=== PATIENT | female | born 1975 | race Caucasian/White ===

== ENCOUNTER 2016-12-07 20:51 | Emergency (ER) | payer BC ==
[2016-12-07 21:31] VITALS: TEMP 98
[2016-12-07 22:07] LABS: Basophils # (A) 0.1 k/uL (0-0.2); Basophils % (A) 1 %; CH 32.7; CHCM 34.5; Eosinophils # (A) 0.2 k/uL (0-0.7); Eosinophils % (A) 2 %; HCT 42.2 % (34.0-46.0); HDW 2.42; HGB 14.2 gm/dL (11.4-16.0); Luc % (Auto) 1; Lymphocytes # (A) 2.8 k/uL (1.0-4.8); Lymphocytes % (A) 24 %; MCH 32.1 pg (25.0-35.0); MCHC 33.7 g/dL (31.0-37.0); MCV 95.3 fL (80.0-100.0); Mean Platelet Volume 7.8; Monocytes # (A) 0.5 k/uL (0-1.0); Monocytes % (A) 5 %; Neutrophils % (A) 68 %; RBC 4.43 m/uL (3.80-5.40); WBC 11.6 k/uL (3.8-10.6)
[2016-12-07 22:16] LABS: ALT 25 U/L (9-52); AST 18 U/L (14-36); Alkaline Phosphatase 53 U/L (38-126); Anion Gap 10 mmol/L; Blood Urea Nitrogen 15 mg/dL (7-17); Calcium 9.2 mg/dL (8.4-10.2); Carbon Dioxide 25 mmol/L (22-30); Chloride 102 mmol/L (98-107); Glucose 113 mg/dL (74-99); Magnesium 1.5 mg/dL (1.6-2.3); Non-African American GFR(MDRD) >60 (>60 ml/min/1.73 sqM); Potassium 3.9 mmol/L (3.5-5.1); Sodium 137 mmol/L (137-145); Total Bilirubin 0.4 mg/dL (0.2-1.3); Total Protein 7.1 g/dL (6.3-8.2)
--- NOTE | 2016-12-07 22:37 | XR ---
EXAMINATION TYPE: XR chest 1V portable DATE OF EXAM: 12/07/2016 10:09 PM COMPARISON: NONE HISTORY: Chest pain and tingling in both arms today TECHNIQUE: Single frontal view of the chest is obtained. FINDINGS: There is no focal air space opacity, pleural effusion, or pneumothorax seen. The cardiac silhouette size is within normal limits. The osseous structures are intact. IMPRESSION: No acute process.
--- NOTE | 2016-12-07 22:52 | ED ---
Chest Pain HPI - General Chief Complaint: Chest Pain Stated Complaint: chest pain Time Seen by Provider: 12/07/16 21:22 Source: patient, RN notes reviewed Mode of arrival: ambulatory Limitations: no limitations - History of Present Illness Initial Comments: This patient is 41-year-old woman who presents to be evaluated for epigastric pressure type pain that developed between 2-3 hours ago while she was at home. The patient states that she also was feeling a little bit short of breath. She states that when the symptoms did not go away she decided to be seen here. The pain did resolve while she was on the way here, and the shortness of breath cleared up as well. The patient believes that she did have some anxiety that was going on and believes that was responsible for the breathing. MD Complaint: chest pain Onset/Timin -: hour(s) Onset: during rest Pain Location: epigastric Pain Radiation: none Severity: moderate Quality: other (Pressure) Consistency: now resolved Improves With: nothing Worsens With: nothing Anginal Symptoms: dyspnea Treatments Prior to Arrival: none - Related Data Previous Rx's Medication Instructions Recorded Famotidine [Pepcid] 20 mg PO DAILY #14 tablet 12/08/16 Allergies Allergy/AdvReac Type Severity Reaction Status Date / Time No Known Allergies Allergy Verified 12/07/16 21:26 Review of Systems ROS Statement: Those systems with pertinent positive or pertinent negative responses have been documented in the HPI. ROS Other: All systems not noted in ROS Statement are negative. Constitutional: Denies: fever, chills ENT: Denies: throat pain Respiratory: Reports: dyspnea. Denies: cough, wheezes Cardiovascular: Reports: as per HPI, chest pain. Denies: palpitations, dyspnea on exertion, orthopnea, edema, syncope Gastrointestinal: Reports: as per HPI, abdominal pain. Denies: nausea, vomiting , melena, hematochezia Genitourinary: Denies: dysuria, hematuria Musculoskeletal: Denies: back pain Skin: Denies: rash Neurological: Denies: headache, weakness, numbness EKG Findings - EKG Results: EKG: interpreted by TAM STARR, sinus rhythm (Rate 94 bpm), normal axis, normal QRS, normal ST/T, no acute changes Past Medical History Past Medical History: Cancer History of Any Multi-Drug Resistant Organisms: None Reported Past Surgical History: Cholecystectomy Past Psychological History: No Psychological Hx Reported Smoking Status: Current every day smoker Past Alcohol Use History: Occasional Past Drug Use History: Marijuana General Exam Limitations: no limitations General appearance: alert, in no apparent distress Head exam: Present: atraumatic, normocephalic Eye exam: Present: normal appearance. Absent: scleral icterus, conjunctival injection Neck exam: Present: normal inspection Respiratory exam: Present: normal lung sounds bilaterally. Absent: respiratory distress, wheezes, rales, rhonchi, stridor, chest wall tenderness Cardiovascular Exam: Present: regular rate, normal rhythm, normal heart sounds. Absent: systolic murmur, diastolic murmur, rubs, gallop GI/Abdominal exam: Present: soft. Absent: distended, tenderness, guarding, rebound, mass Extremities exam: Present: normal inspection, normal capillary refill. Absent: pedal edema, calf tenderness Back exam: Absent: CVA tenderness (R), CVA tenderness (L) Neurological exam: Present: alert Skin exam: Present: warm, dry, intact, normal color. Absent: rash Course Vital Signs 12/07/16 12/07/16 12/07/16 20:57 21:27 22:29 Temperature 99.1 F 98.0 F 98.0 F Pulse Rate 110 H 90 88 Pulse Rate [ 90 Beet Flumer ] Respiratory 20 18 16 Rate Blood Pressure 129/80 150/69 107/54 O2 Sat by Pulse 100 98 98 Oximetry 12/07/16 23:47 Temperature Pulse Rate 80 Pulse Rate [ Beet Flumer ] Respiratory 12 Rate Blood Pressure 103/48 O2 Sat by Pulse 97 Oximetry Disposition Clinical Impression: Chest pain Disposition: HOME SELF-CARE Condition: Good Instructions: Chest Pain (ED) Prescriptions: Famotidine [Pepcid] 20 mg PO DAILY #14 tablet Referrals: None,Stated [Primary Care Provider] - 1-2 days Tj Jose MD [STAFF PHYSICIAN] - 1-2 days
[2016-12-07 23:48] VITALS: BP 103/48; PULSE 80; RESP 12
== END 2016-12-08 00:11 | disposition home or self-care (01) ==
LOC: EC 20:51
DX: R07.9 Chest pain, unspecified (principal); F17.200 Nicotine dependence, unspecified, uncomplicated; Z79.899 Other long term (current) drug therapy
CPT/HCPCS: 36415; 71010; 80053; 83735; 84484; 85025; 93005; 99285

== ENCOUNTER 2021-06-15 10:44 | Emergency (ER) | payer BC, OTHER ==
[2021-06-15 10:48] VITALS: TEMP 98.2
[2021-06-15 11:01] VITALS: RESP 20
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
--- NOTE | 2021-06-15 11:39 | XR ---
EXAMINATION TYPE: XR thoracic spine complete DATE OF EXAM: 06/15/2021 COMPARISON: None HISTORY: Fall, pain TECHNIQUE: 3 view thoracic spine. FINDINGS: There are 12 thoracic type vertebral bodies. The pedicles are intact. Disc heights are pres erved. Body heights are preserved. Alignment is normal. IMPRESSION: 1. Normal three-view thoracic spine
--- NOTE | 2021-06-15 12:08 | CT ---
EXAMINATION TYPE: CT brain bear wo con DATE OF EXAM: 06/15/2021 COMPARISON: None HISTORY: Fall CT DLP: 1160.5 mGycm, Automated exposure control for dose reduction was used. CONTRAST: Patient injected with mL of . CT of the brain is performed utilizing 3 mm thick sections through the posterior fossa and 3 mm thick sections through the remaining calvarium. Study is performed within 24 hours of arrival to the hospital. No abnormal hyperdensity is present to suggest an acute intracranial hemorrhage. No mass lesion is evident. No acute infarcts are evident. Ventricles and sulci are appropriate for the patient age. Some minimal mucosal thickening is within a posterior right ethmoid air cell. Remaining paranasal sin uses and mastoid air cells are clear. IMPRESSIONS: 1. No acute intracranial process. CT cervical spine. COMPARISON: None CT of the cervical spine is performed in the axial plane at 2 mm thick sections. Reconstructed image s in the coronal, and sagittal plane are reviewed on the computer. No acute fractures are evident. Vertebral body alignment is normal. Disc heights are preserved. Vertebral body heights are preserved. No spinal canal stenosis is evident. No neural foraminal stenosis is evident. IMPRESSIONS: 1. Normal CT cervical spine.
[2021-06-15 12:13] VITALS: BP 126/53; PULSE 75
[2021-06-15] MEDS ORDERED: HYDROcodone/APAP 5-325MG 1 EACH TAB PO STA (12:36)
== END 2021-06-15 12:51 | disposition home or self-care (01) ==
LOC: EC 10:44
DX: R20.2 Paresthesia of skin (principal); M54.9 Dorsalgia, unspecified; W18.09XA Striking against other object with subsequent fall, initial encounter; Y92.89 Other specified places as the place of occurrence of the external cause; F17.200 Nicotine dependence, unspecified, uncomplicated
CPT/HCPCS: 70450; 72072; 72125; 99284

== ENCOUNTER 2023-02-22 06:10 | Emergency (ER) | payer OTHER ==
[2023-02-22] MEDS ORDERED: KETOROLAC 15 MG/ML 1 ML VIAL IVP STA (06:36)
[2023-02-22] MEDS ORDERED: ORPHENADRINE 30 MG/ML 2 ML VIAL IVP STA (06:36)
[2023-02-22] MEDS ORDERED: methylPREDNISolone SOD SUCCI 125 MG/2 ML VIAL IV STA (06:36)
[2023-02-22] MEDS ORDERED: ACET/COD 300 MG/30 MG STARTER PACK 6 TAB BTL PO STA (06:43)
--- NOTE | 2023-02-22 06:50 | ED ---
General Adult HPI - General Stated complaint: Back pain Time Seen by Provider: 02/22/23 06:13 Source: patient, EMS, RN notes reviewed Mode of arrival: EMS Limitations: no limitations - History of Present Illness Initial comments: 47-year-old female presents emergency department tingling or sciatica. Patient states she seen in one month ago states she did to better but never followed up with she was advised. Patient states that the pain. Her left leg. She denies any bowel, bladder incontinence or retention or saddle anesthesias. Patient states that she's had back pain for long periods time. Patient denies any abdominal pain no dysuria no hematuria denies any trauma. - Related Data Previous Rx's Medication Instructions Recorded Ibuprofen [Motrin] 600 mg PO Q8HR PRN #20 tab 01/16/23 Orphenadrine [Norflex] 100 mg PO Q12H #14 tab 02/22/23 predniSONE 50 mg PO DAILY #5 tab 02/22/23 Allergies Allergy/AdvReac Type Severity Reaction Status Date / Time No Known Allergies Allergy Verified 06/15/21 12:10 Review of Systems ROS Statement: Those systems with pertinent positive or pertinent negative responses have been documented in the HPI. ROS Other: All systems not noted in ROS Statement are negative. Past Medical History Past Medical History: Cancer History of Any Multi-Drug Resistant Organisms: None Reported Past Surgical History: Cholecystectomy Past Psychological History: No Psychological Hx Reported Smoking Status: Current every day smoker Past Alcohol Use History: Occasional Past Drug Use History: Marijuana General Exam General appearance: alert, in no apparent distress Head exam: Present: atraumatic, normocephalic, normal inspection Eye exam: Present: normal appearance, PERRL, EOMI. Absent: scleral icterus, conjunctival injection, periorbital swelling ENT exam: Present: normal exam, mucous membranes moist Neck exam: Present: normal inspection, full ROM. Absent: tenderness, meningismus, lymphadenopathy Respiratory exam: Present: normal lung sounds bilaterally. Absent: respiratory distress, wheezes, rales, rhonchi, stridor Cardiovascular Exam: Present: regular rate, normal rhythm, normal heart sounds. Absent: systolic murmur, diastolic murmur, rubs, gallop, clicks GI/Abdominal exam: Present: soft, normal bowel sounds. Absent: distended, tenderness, guarding, rebound, rigid Extremities exam: Present: other (Lower extremity pulses equal bilaterally, full range of motion strength equal there is some discomfort with left straight leg raise.) Back exam: Present: tenderness, muscle spasm, paraspinal tenderness. Absent: full ROM, vertebral tenderness Neurological exam: Present: alert, reflexes normal. Absent: motor sensory deficit Medical Decision Making - Medical Decision Making Was pt. sent in by a medical professional or institution (BRIAN Baker, ORGANIC PREPARATION TECHNICIAN, urgent care, hospital, or prison...) When possible be specific @ -No Did you speak to anyone other than the patient for history (EMS, parent, family, police, friend...)? What history was obtained from this source @ -No Did you review nursing and triage notes (agree or disagree)? Why? @ -I reviewed and agree with nursing and triage notes Were old charts reviewed (outside hosp., previous admission, EMS record, old EKG, old radiological studies, urgent care reports/EKG's, prison records)? Report findings @ -Reviewed prior lumbar x-ray one month ago showing severe degenerative changes L5-S1 Differential Diagnosis (chest pain, altered mental status, abdominal pain women, abdominal pain men, vaginal bleeding, weakness, fever, dyspnea, syncope, headache, dizziness, GI bleed, back pain, seizure, CVA, palpatations, mental health, musculoskeletal)? @ -Differential Back Pain: Strain, zoster, cauda equina syndrome, epidural abscess, vertebral osteomyelitis, discitis, fracture, subluxation, disc herniation, DJD, spinal stenosis, dissection, AAA, pancreatitis, peptic ulcer disease, pyelonephritis, kidney stone, this is not meant to be an all-inclusive list. EKG interpreted by me (3pts min.). @ -As above X-rays interpreted by me (1pt min.). @ -None done CT interpreted by me (1pt min.). @ -None done U/S interpreted by me (1pt. min.). @ -None done What testing was considered but not performed or refused? (CT, X-rays, U/S, labs)? Why? @ -Considered MRIs of this needs to be completed her outpatient patient has no red flag symptoms. What meds were considered but not given or refused? Why? @ -None Did you discuss the management of the patient with other professionals (professionals i.e. Dr., PA, ORGANIC PREPARATION TECHNICIAN, lab, RT, psych nurse, director social service, weight analyst, teacher, surveillance dual rate officer, case assistant)? Give summary @ -No Was smoking cessation discussed for >3mins.? @ -No Was critical care preformed (if so, how long)? @ -No Were there social determinants of health that impacted care today? How? (Homelessness, low income, unemployed, alcoholism, drug addiction, transportation, low edu. Level, literacy, decrease access to med. care, [facility], rehab)? @ -No Was there de-escalation of care discussed even if they declined (Discuss DNR or withdrawal of care, Hospice)? DNR status @ -No What co-morbidities impacted this encounter? (DM, HTN, Smoking, COPD, CAD, Cancer, CVA, ARF, Chemo, Hep., AIDS, mental health diagnosis, sleep apnea, morbid obesity)? @ -Chronic back pain Was patient admitted / discharged? Hospital course, mention meds given and route, prescriptions, significant lab abnormalities, going to OR and other pertinent info. @ -Discharged patient's x-ray confirmed your records were reviewed patient has severe degenerative changes L5-S1 consistent with recurrent sciatica pain. She has no red flag symptoms. She is again advised to follow-up as instructed last time. She will be discharged with prednisone, muscle relaxer Undiagnosed new problem with uncertain prognosis? @ -No Drug Therapy requiring intensive monitoring for toxicity (Heparin, Nitro, Insulin, Cardizem)? @ -No Were any procedures done? @ -No Diagnosis/symptom? @ -Lumbar back pain, sciatica Acute, or Chronic, or Acute on Chronic? @ -Acute on chronic] Uncomplicated (without systemic symptoms) or Complicated (systemic symptoms)? @ -Uncomplicated Side effects of treatment? @ -No Exacerbation, Progression, or Severe Exacerbation? @ -No Poses a threat to life or bodily function? How? (Chest pain, [place], CA, pneumonia, PE, COPD, DKA, ARF, appy, cholecystitis, CVA, Diverticulitis, Homicidal, Suicidal, threat to staff... and all critical care pts) @ -No Disposition Clinical Impression: Lumbar radiculopathy, acute Disposition: HOME SELF-CARE Condition: Stable Instructions (If sedation given, give patient instructions): Lumbar Radiculopathy (ED) Additional Instructions: Please return to the Emergency Department if symptoms worsen or any other concerns. Prescriptions: Orphenadrine [Norflex] 100 mg PO Q12H #14 tab predniSONE 50 mg PO DAILY #5 tab Is patient prescribed a controlled substance at d/c from ED?: No Referrals: None,Stated [Primary Care Provider] - 1-2 days Hanna Ren DO [Doctor of Osteopathic Medicine] - 1-2 days Time of Disposition: 06:42
[2023-02-22 07:47] VITALS: BP 133/62; PULSE 63; RESP 16; TEMP 98
== END 2023-02-22 07:47 | disposition home or self-care (01) ==
LOC: EC 06:10
DX: M54.16 Radiculopathy, lumbar region (principal); F17.200 Nicotine dependence, unspecified, uncomplicated; F12.90 Cannabis use, unspecified, uncomplicated; Z90.49 Acquired absence of other specified parts of digestive tract
CPT/HCPCS: 99283; 96374; 96375 ×2; J2360; J2930; J1885

== ENCOUNTER → 2023-03-17 | Outpatient (CLI) | payer OTHER ==
--- NOTE | 2023-03-19 10:27 | MR ---
EXAMINATION TYPE: MR lumbar spine wo con DATE OF EXAM: 03/17/2023 8:04 PM COMPARISON: 03/03/2023. CLINICAL INDICATION:Female, 47 years old with history of M47.26; Low back pain that radiates down bot h legs, leg spasms TECHNIQUE: Multi planar, multi sequence imaging was performed utilizing: T1-weighted, T2-weighted, a nd turbo inversion recovery imaging of the lumbar spine. IV Contrast: None. FINDINGS: Alignment: The lumbar vertebral bodies have preserved heights and alignment. Cord: The conus medullaris and the distal spinal cord appear unremarkable with regards to their signa l intensity and morphology. Bones/Discs: Modic endplate changes most pronounced at L4-L5 anterior adjoining endplates No abnormal bony edema on inversion recovery sequences. Multilevel disc degenerative is noted and most pronounce d at the L4-L5 with disc desiccation and endplate height loss. Intervertebral disc signal is maintain ed. T12-L1: No evidence of significant spinal canal stenosis or neural foraminal stenosis. L1-L2: No evidence of significant spinal canal stenosis or neural foraminal stenosis. L2-L3: No evidence of significant spinal canal stenosis or neural foraminal stenosis. L3-L4: No evidence of significant spinal canal stenosis or neural foraminal stenosis. L4-L5: No evidence of significant spinal canal stenosis or neural foraminal stenosis. L5-S1: The disc is rounded posterior morphology without significant spinal canal stenosis. Facet join t arthropathy with moderate neural foraminal stenosis. Other findings: None. IMPRESSION: 1. No definitive evidence of disc herniation or significant spinal canal stenosis. 2. Multilevel disc degeneration with associated osteoarthritic changes worse at L4-L5 with near comp lete disc space loss and moderate neural foraminal stenosis.
== END | disposition home or self-care (01) ==
LOC: RADMRIMAIN 19:12
PROVIDERS: ATTEND Nurse Practitioner Family
DX: M47.26 Other spondylosis with radiculopathy, lumbar region (principal); M51.16 Intervertebral disc disorders with radiculopathy, lumbar region; M99.73 Connective tissue and disc stenosis of intervertebral foramina of lumbar region
CPT/HCPCS: 72148

== ENCOUNTER → 2023-06-09 | Outpatient (CLI) | payer OTHER | END | disposition home or self-care (01) | LOC: LABPAT 10:16 | PROVIDERS: ATTEND Orthopaedic Surgery | DX: Z01.812 Encounter for preprocedural laboratory examination (principal); M47.817 Spondylosis without myelopathy or radiculopathy, lumbosacral region; M48.061 Spinal stenosis, lumbar region without neurogenic claudication; Z22.322 Carrier or suspected carrier of Methicillin resistant Staphylococcus aureus | CPT/HCPCS: 87070 ==

== ENCOUNTER 2023-06-15 07:52 | Day surgery (SDC) | payer OTHER ==
--- NOTE | 2023-06-15 07:00 | P.HPOR ---
History of Present Illness H&P Date: 06/09/23 .D:Date: 06/09/23 : 04:34pm .T:Title: *[facility]... COPY... 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 Month and Year of last PT date? No, unable to complete due to sprained right ankle. Physician directed home exercise completed? Yes Medications Yes; List: Motrin & Flexeril Alternative interventions Chiropractic:yes Massage therapy: yes R.I.C.E:yes Brace:No Injections No RFA:No SUBJECTIVE: Ms. Ortiz returns to the office today for a pre-operative appointment for her L5-S1 MIS TLIF. The patient notes a continued burning, pinching, and ache- like pain throughout the low back. She reports no changes to her symptoms since her last visit. The patient also experiences continued pain throughout the bilateral lower extremities, worse throughout the right leg at this time. The patient notes that her bilateral leg pain is associated with numbness and tingling. The patient states that her pain is exacerbated with all activity, but mostly with prolonged walking or standing. The patient continues to experience severe sleep disturbances due to her ongoing symptoms. The patient has trialed conservative treatment in the form of at home heat/ice therapies, at home exercises, resident care aide, massage therapy, and medication management all with no significant or sustained relief. The patient is currently taking Motrin and Flexeril with minimal relief. The patient notes that her symptoms have been worsening and are starting to significantly affect her overall quality of life. Otherwise the patient denies any f/c/sob/cp, no bladder or bowel retention/incontinence, no perineal numbness/tingling, and ambulates independently. HPI: Ms. Ortiz returns to the office on 04/28/23 for a re-check on her low back pain. The patient notes a continued burning, pinching, and ache-like pain throughout the low back that has remained constant since she was last seen in office on 04/09/2023. The patient also experiences continued pain throughout the bilateral lower extremities, worse throughout the right leg at this time. The patient notes that her bilateral leg pain is associated with numbness and tingling. The patient states that her pain is exacerbated with all activity, but mostly with prolonged walking or standing. The patient continues to experience severe sleep disturbances due to her ongoing symptoms. The patient has trialed conservative treatment in the form of at home heat/ice therapies, at home exercises, resident care aide, massage therapy, and medication management all with no significant or sustained relief. The patient is currently taking Ibuprofen and Flexeril with minimal relief. The patient notes that her symptoms have been worsening and are starting to significantly affect her overall quality of life. Otherwise the patient denies any f/c/sob/cp, no bladder or bowel retention/incontinence, no perineal numbness/tingling, and ambulates independently. Ms. Ortiz returns to the office on 04/09/2023 for a recheck of her low back pain and MRI results. Since the last office visit, patient has not been able to complete physical therapy due to her injuring her right ankle. She states she did have 75% relief of her symptoms while taking the medrol dose elvi. She continues to have complaint of a dull, burning lumbar pain that it radiates into the bilateral lower extremities, associated with numbness and tingling. She still states the left leg is worse. Patient denies trialing any other modalities at this time. For their symptoms, the patient has been taking Aleve. MRI results have been reviewed and discussed. Otherwise the patient denies any f/c/sob/cp, no bladder or bowel retention/incontinence, no perineal numbness/tingling, and ambulates independently. Ms. Ortiz was last seen on 03/03/23 regarding an evaluation of their low back pain. Patient reports a dull, burning lumbar pain with an onset of 14 years after falling from a tree. Patient states her symptoms have increased over the past two months. In addition to their lumbar pain, they do report that it radiates into the bilateral lower extremities, associated with numbness and tingling. She states the left leg is worse. Patient states that her legs become very heavy after a period of time ambulating. Overall the patient has seen a progressive increase in symptoms since their onset. Ms. Ortiz symptoms are exacerbated with prolonged ambulation and standing, due to this they notes that it is increasingly difficult for her to complete many of their daily tasks. Patient is having moderate sleep disturbances as well due to their ongoing pain and associated symptoms. Regarding treatments, the patient has previously trialed the above listed modalities. Patient denies trialing any other modalities at this time. For their symptoms, the patient has been taking Aleve. Otherwise the patient denies any f/c/sob/cp, no bladder or bowel retention/incontinence, no perineal numbness/tingling, and ambulates independently. The patients' past social, medical, family, surgical history, as well as review of systems, have been reviewed. Please refer to the Neurosurgery History and Physical form that has been scanned in to our electronic medical record system. 14 points review of systems completed and as stated in HPI, all other systems reviewed are negative. Social History: Reviewed, see appropriate section of the chart for details. P3 Family History: Reviewed, see appropriate section of the chart for details. P2 Past Medical History: Reviewed, see appropriate section of the chart for details. [id number] Medications: Rx: cyclobenzaprine 5 mg tablet Ref: 0 PHYSICAL EXAMINATION: General:Awake, alert, appropriate for age, in no acute distress. HEENT:No unusual neck masses around region of lateral neck triangle, thyroid, supraclavicular groove Heart:Regular rate and rhythm, normal S1, S2 and no murmur/gallop. Lungs:Clear to auscultation bilaterally with no use of accessory muscles. Extremities: Skin warm and dry without acute lesions, coloration, temperature, skin intact, no tenderness or erythema Integument: Hairy patches:ABSENT Dorsal skin dimples:ABSENT Cafe au lait spots:ABSENT Palpation: Please see Pain drawing on Intake sheet for further detail. Midline spinal tenderness:No E6 Cervical Tenderness: No E6 Paralumbar tenderness:Yes E6 Parathoracic tenderness:No E6 Buttocks tenderness:No E6 Sacroiliac Tenderness:No POSTURAL and MUSCULO-SKELETAL EVALUATION: Coronal Balance:NEUTRAL Recumbent testing:Patient isable to lay flat on back Sagittal Balance:NEUTRAL Shoulder Profile:LEVEL Pelvic Girdle:LEVEL Neck ROM:UNRESTRICTED Lumbar ROM:RESTRICTED Shoulder ROM:Symmetrical Hip ROM:Symmetrical Knee ROM:Symmetrical Hands:Normal appearance, symmetrical Feet:Normal appearance, Symmetrical VASCULAR STATUS : LEFT RIGHT Wrist Pulses INTACT INTACT Pedal Pulses (Dors. pedis & post.tibialis) INTACT INTACT Color NORMAL NORMAL Edema Absent Absent NEUROLOGIC EXAMINATION: Mental Status:Awake and alert, fully oriented, with normal attention, concentration and memory, and fluent, appropriate speech. Cranial Nerves: I: Olfactory not tested. II: Visual acuity normal, no visual field deficit noted with confrontation. III,IV: Normal pupillary reflexes & intact extraocular movements without nystagmus. V,: Intact symmetrical facial sensation. VII: Intact symmetrical facial motor movement VIII: Hearing intact. IX,X: Intact gag, swallow, & normal voice. XI: Sternocleidomastoid, trapezius function intact. XII: Tongue midline with normal movements. L'hermitte's Sign:Negative / absent Spurling'Sign:Absent bilaterally. Cubital percussion test:Absent bilaterally. Argueta-Tinel sign - Carpal region:Absent bilaterally. Straight Leg Raising:Positive, right lower extremity. Crossed straight leg raise:negative O8 MOTOR EXAM (0-5/5, N/T Muscle appearance: Symmetrical, without signs of atrophy or dystrophy UPPER EXTREMITY RIGHT LEFT Shoulder Abduction 5/5 5/5 Biceps 5/5 5/5 Triceps 5/5 5/5 Wrist Extension 5/5 5/5 Hand Intrinsic 5/5 5/5 Buttoner 5/5 5/5 Hand and finger dexterity intact bilaterally? yes Disdiadochokinesis examination negative bilaterally? yes LOWER EXTREMITY RIGHT LEFT Hip Flexion 4+/5 5/5 Knee Extension 4+/5 5/5 Knee Flexion 4+/5 5/5 Dorsiflexion 4+/5 5/5 Plantarflexion 4+/5 5/5 EHL 4+/5 5/5 FHL 4+/5 5/5 Toe heel walk / heel-toe walk intact while maintaining satisfactory balance? yes Squatting/straightening w/o assistance to a min of 60 degree knee flexion? No Single leg stance:intact Trendelenburg sign negative bilaterally REFLEXES(0-4/2, NT)Upper ExtremityLower Extremity Right 2 2 Left 2 2 Pathological Reflexes RIGHT LEFT Argueta's Absent Absent Clonus Absent Absent Babinski Absent Absent Sensory system (0-4, N/T) Test type RU ORA RL LL Joint-Position 2 2 2 2 Vibration 2 2 2 2 Pain & LT sense 2 2 2 2 Dermatomal Deficit: None None L5-S1 None Gait and Functional Evaluation: Ambulatory aids:Independent Romberg's test:Intact bilaterally Steady Gait RADIOGRAPHIC STUDIES: XRay Lumbar Multiview (AP, Lateral, Flexion, Extension) with AP pelvis; 5 views taken at [facility] on 03/03/23: - Reviewed with the patient in office today. Mild multilevel degenerative changes with preserved alignment.Multilevel diminished disc height, more prominent L5-S1.Vertebral body heights are preserved.No acute osseous abnormalities. MRI [facility] from03/17/23 of Lumbar Spine: - Reviewed with the patient today. -L5-S1 spondylosis with stenosis b/l foraminal and mild central. There is severe disc collapse, facet arthrosis and insufficiency as well as segmental kyphotic collapse due to the spondylosis. Moderate spondylotic changes L4-5 noted as well. Some minor disc bulging here. No fracture. NO lesions. IMPRESSION: It was my pleasure to have seen and examined Aicha. I reviewed the patient's clinical syndrome, physical findings, and imaging studies during the appointment today. It is my impression that the patient has a diagnosis of. 1. L5-S1 spondylosis with stenosis 2. Bilateral lower extremity radiculopathy 3. Low back pain I outlined the natural course history without intervention and various interventional options. PLAN: Based on my findings I suggest the following course of action: -I discussed treatment options with the patient, including operative and non- operative options, and they have elected to proceed with the following surgical procedure: L5-S1 minimally invasive transforaminal lumbar interbody fusion, right The indications, risks, benefits, and alternatives to surgery were discussed with the patient at length. Specifically (but not limited to) the risks of infection, stiffness, recurrence of symptoms, need for revision surgery, local numbness, neurovascular injury, and blood clots were discussed. The patient's questions were answered. - I have sent a prescription to [facility] today for Motrin 800 mg. - Ambulate daily - Take medications as directed - Ice and rest for pain and swelling control. Spine Surgery Risk Review Ms. Ortiz is presenting for evaluation of low back pain. It was my pleasure to have seen and examined Ms. Ortiz. In our visit today we have had a chance to go over subjective complaints, physical examination findings and treatments including the natural course history without intervention and various interventional options. The patients imaging demonstrates: XRay Lumbar Multiview (AP, Lateral, Flexion, Extension) with AP pelvis; 5 views taken at [facility] on 03/03/23: - Reviewed with the patient in office today. Mild multilevel degenerative changes with preserved alignment.Multilevel diminished disc height, more prominent L5-S1.Vertebral body heights are preserved.No acute osseous abnormalities. MRI scancompleted at [facility] from03/17/23 of Lumbar Spine: - Reviewed with the patient today. -L5-S1 spondylosis with stenosis b/l foraminal and mild central. There is severe disc collapse, facet arthrosis and insufficiency as well as segmental kyphotic collapse due to the spondylosis. Moderate spondylotic changes L4-5 noted as well. Some minor disc bulging here. No fracture. NO lesions. On physical exam, Ms. Ortiz demonstrates: The patient reports experiencing a burning, pinching, and ache-like pain throughout the low back that has remained constant since she was last seen in office on 04/09/2023. The patient also experiences continued pain throughout the bilateral lower extremities, worse throughout the right leg at this time. The patient notes that her bilateral leg pain is associated with numbness and tingling. The patient states that her pain is exacerbated with all activity, but mostly with prolonged walking or standing. The patient continues to experience severe sleep disturbances due to her ongoing symptoms. The patient notes that her symptoms have been worsening and are starting to significantly affect her overall quality of life. I have explained to the patient that as their condition progresses it will cause further neurological deficits and eventual paralysis. Based on the patients imaging, physical exam, and the rapid progression and disabling nature of their symptoms, at this time I recommend surgery in the form of a: L5-S1 MIS TLIF, right-sided approach. I discussed the risk and benefits of this procedure at [facility] with Ms. Ortiz. The patient agreed to considered pursuing the procedure above mentioned. Prior to surgery, she should follow up with her PCP (Cardio, ID, IM etc) for clearance. Questions were invited and answered, and the patient wishes to proceed as outlined below. Currently, I am recommendin. L5-S1 MIS TLIF, right-sided approach 2.Follow up with PCP for surgical clearance 3.Review of surgical risks and benefits as well as an educational packet on the proposed surgical procedure. Risks: All surgical procedures come with inherent risks, including those related to positioning, anesthesia, intraoperative findings, and postoperative complications. It is important to understand that surgery does not come with any guarantee of a successful outcome as complications and adverse events are always possible. The patient was given a handout in office today discussing the surgical procedure and risks associated with the intervention, both of which were discussed with the patient. These risks include but are not limited to the following: * Experiencing same, different or even worse symptoms in back, neck, arms, or legs compared to before surgery. Requiring further surgery or other forms of treatment presently or at some time in the future at same or other levels of the intended spine surgery. On an extreme but fortunately relatively rare basis severe complication such as blindness, stroke, heart attack, temporary and/or permanent nerve injury, paralysis, coma, or may occur, sometimes without known explanation. Surgical complications may include but are not limited to risk of infection, fluid accumulation in the surgical dissection site, including a seroma or hematoma, that requires additional surgery, wound drainage, bleeding, new numbness or weakness, vision changes/loss, spinal fluid leakage, non-healing and/or infected incision, headaches, difficulty or inability to swallow, hoarseness, hemopneumothorax, pneumothorax, impotence, retrograde ejaculation, vaginal dryness; injury to nerves, spinal cord, blood vessels, lymphatics or other vital organs (i.e., bowel injury, injury to the great vessels); heterotopic bone formation; complications related to the hardware such as screws, rods, cages including misplaced hardware, device failure, instrumentation at the wrong spine level, hardware fracture/breakage, or hardware loosening; vertebral failure of the spinal column above or below the newly placed hardware; retained surgical instrumentations or devices and the need for further surgery. * Medical risks of the planned spine surgery include but are not limited to generalized Infections to the whole body or local areas outside of the surgical site (sepsis), heart attack, bleeding, anaphylaxis, meningitis, seizure, epilepsy, hearing loss, burn junior, laceration of the head or other areas of the body, bruising, hypersensitivity of the skin, bladder over distension; allergic reaction; shoulder injury related to positioning; fat, blood and air clots to other areas of the body like heart, lungs, brain; failure of internal organs such as lungs, kidneys, liver and excessive bleeding. If blood transfusions are necessary, note that transfusions may cause intolerance reactions such as anaphylaxis or other complex reactions. Despite best efforts, the results of spine surgery might not heal in terms of bone, soft tissues such as skin, fascia, ligaments, and joints. Additionally, in order to achieve best possible results, spine surgery may be carried out beyond the initially planned levels and involve decompression, fusion including insertion of hardware at levels other than the original intended area of surgical interest change some portions of the procedure in order to ensure the best possible outcomes. With spine surgery and spinal fusion, there are different off label uses of i nstrumentation (devices, implants and hardware) as well as biological substances (bone morphogenic proteins, demineralized bone matrix) as well as using extra bone from allograft sources (i.e. cadaver bone) or autograft (iliac crest bone, ribs, or the spine itself). The patient has been given information about these practices and their inherent risks and benefits. [facility] is an educational center that serves as a training facility for neurosurgical and orthopedic HONING MACHINE OPERATOR TOOL and Nursing students. Physician assistants are medically trained surgical providers who function in the outpatient, inpatient, and operating room setting under the direct supervision of the attending surgeon. [facility] has multiple operating rooms with single and overlapping rooms running daily. They currently function under the required guidelines as produced by the [facility] Finance Committee with regards to the overlapping rooms and will continue to comply with changes to this policy as they occur. The requirements include and are complied with as follows: (1) the critical portions of the overlapping rooms will not occur at the same time, (2) the attending physician will be physically present during the critical portions of the procedure and immediately available during the entire case, and (3) a back-up attending is designated should the primary attending not be immediately available. The patient has had a chance to review all the listed information, has been given print outs detailing this information, and has had all his/her questions answered to their satisfaction. It was my pleasure to have seen and examined Ms. Whitebread. In our visit today we have had a chance to go over my understanding of our patient's current condition, the natural course history without intervention and various interventional options. Questions were invited and answered, and the patient wishes to proceed as outlined above. I have seen and examined the patient for 25 minutes and we have spent more than 50% of the time in repeat and detailed counseling about the patient's condition, its natural course history with out and as much as can be predicted with surgery and re-review of various surgical treatment options. In conclusion, Ms. Ortiz requested we proceed with the above suggested surgery and are willing to accept risks and limitations of the suggested surgery as nature of the disease process and our best attempts at treatment for the condition. Thank you again for allowing us to be part of your patient's care. Please don't hesitate to contact me if you have any further questions. Follow- up: DEL Post procedure 1month 6wks 3 months 6 months 1 year Patient Education: (Informational booklet, instructions, etc) given at today's appointment: DEL Yes .ED:Patient Education: Y Medications Reviewed: YES In our visit today Ms. Ortiz and I have had a chance to go over my understanding of the patient's current condition, the natural course history without intervention and various interventional options. Questions were invited and answered, and the patient wishes to proceed as outlined above. I will be sure to keep you updated afterMs. Ortiz returns here for further follow-up. Thank you again for your referral. Please do not hesitate to contact me if you have any further questions. Signed and authenticated by: ANITA [facility] [address] [place] [id number] This message is confidential, intended only for the named recipient(s) and may contain information that is privileged or exempt from disclosure under applicable law. If you are not the intended recipient(s), you are notified that the dissemination, distribution or copying of this information is strictly prohibited. If you received this message in error, please notify the sender then delete this message. Patient verbalizes understanding of the information discussed. The above note was initiated by Mihai Durand, physician recording clinical nursing assistant for Dr. Per Gtz. This note has been reviewed by Dr. Gtz, who has made his personal changes and impressions for this document. CC: DEL REFDR... Past Medical History Past Medical History: Cancer, Musculoskeletal Disorder, Osteoarthritis (OA) Additional Past Medical History / Comment(s): cervical cancer-had surg. History of Any Multi-Drug Resistant Organisms: None Reported Past Surgical History: Cholecystectomy Additional Past Surgical History / Comment(s): conization of cervix Past Anesthesia/Blood Transfusion Reactions: No Reported Reaction Smoking Status: Current every day smoker, Vaper - Past Family History Mother Family Medical History: No Reported History Medications and Allergies Home Medications Medication Instructions Recorded Confirmed Type Cyclobenzaprine [Flexeril] 5 mg PO DIRECTED PRN 06/11/23 06/11/23 History Ibuprofen [Motrin] 800 mg PO Q6H PRN 06/11/23 06/11/23 History Allergies Allergy/AdvReac Type Severity Reaction Status Date / Time No Known Allergies Allergy Verified 06/11/23 12:25 Physical Examination Osteopathic Statement: *. No significant issues noted on an osteopathic structural exam other than those noted in the History and Physical/Consult.
[~2023-06-15 07:52] MED LIST: ACETAMINOPHEN TAB 500 MG TAB PO PRN; DEXAMETHASONE SOD PHOSPHATE 4 MG/ML 1 ML VIAL IV ONE; GABAPENTIN 300 MG CAP PO PRN; ONDANSETRON 4 MG/2 ML VIAL IVP ONE; ONDANSETRON 4 MG/2 ML VIAL IVP PRN; TRANEXAMIC 1,000 MG/100ML-NACL 1,000 MG in SALINE 1 100ML.BAG IVPB PRN
[2023-06-15] MEDS: LACTATED RINGERS 1,000 ML IV SCH (08:58)
--- NOTE | 2023-06-15 11:19 | P.PN ---
Progress Note - Text Progress Note Date: 06/15/23 History and Physical UPDATE I have seen and examined the patient and reviewed the history and physical. There appear to be no significant changes in the patient's current medical status as outlined in the current History and Physical.
[2023-06-15] MEDS ORDERED: fentaNYL (PF) 50 MCG/ML 2 ML AMP ONE (11:38)
[2023-06-15] MEDS ORDERED: PHENYLEPHRINE-0.9% NACL SYG 1,000 MCG/10 ML SYRINGE ONE (11:38)
[2023-06-15] MEDS ORDERED: SUCCINYLCHOLINE CHLORIDE 200 MG/10 ML VIAL IV ONE (11:38)
[2023-06-15] MEDS ORDERED: PROPOFOL 10 MG/ML 20 ML VIAL IV ONE (11:38)
[2023-06-15] MEDS ORDERED: LIDOCAINE 2% INJ 20 MG/ML (2 ML VIAL) ONE (11:38)
[2023-06-15] MEDS ORDERED: GLYCOPYRROLATE 0.2 MG/ML 2 ML VIAL ONE (11:38)
[2023-06-15] MEDS ORDERED: ONDANSETRON 4 MG/2 ML VIAL ONE (11:38)
[2023-06-15] MEDS ORDERED: TRANEXAMIC 1,000 MG/100ML-NACL PREMIX BAG ONE (11:38)
[2023-06-15] MEDS ORDERED: MIDAZOLAM 2 MG/2 ML VIAL ONE (11:38)
[2023-06-15] MEDS ORDERED: ePHEDrine 50 MG/ML 1 ML VIAL ONE (11:38)
[2023-06-15] MEDS ORDERED: LACTATED RINGERS 1,000 ML IV ONE ×2 (11:43→14:05)
[2023-06-15] MEDS ORDERED: GELATIN SPONGE,ABSORBABLE 1 GM POWDER TOPICAL ONE (12:29)
[2023-06-15] MEDS ORDERED: THROMBIN (BOVINE) 5,000 UNIT VIAL TOPICAL ONE (12:29)
[2023-06-15] MEDS ORDERED: HYDROmorphone 0.5 MG/0.5 ML SYRINGE IVP PRN (13:45)
[2023-06-15] MEDS ORDERED: MAGNESIUM HYDROXIDE 2,400 MG/30 ML CUP PO PRN (13:45)
[2023-06-15] MEDS ORDERED: HYDROcodone/APAP 5-325MG 1 EACH TAB PO PRN (13:45)
[2023-06-15] MEDS ORDERED: SENNOSIDES-DOCUSATE SODIUM 1 EACH TAB PO PRN (13:45)
--- NOTE | 2023-06-15 14:08 | P.OP ---
Date of Procedure: 06/15/23 Preoperative Diagnosis: 1. L5-S1 SPONDYLOSIS, SEVERE 2. L5-S1 FORAMINAL STENOSIS 3. LOW BACK PAIN 4. LE RADICULOPATHY Postoperative Diagnosis: 1. L5-S1 SPONDYLOSIS, SEVERE 2. L5-S1 FORAMINAL STENOSIS 3. LOW BACK PAIN 4. LE RADICULOPATHY Procedure(s) Performed: 1. L5-S1 POSTERIOLATERAL AND INTERBODY FUSION (76689) 2. L5-S1 INSTRUMENTATION (38389) 3. L5-S1 LAMINOFORAMINOTOMY FOR DECOMPRESSION AND CAGE PLACEMENT (07288) 4. INSERTION OF BIOMECHANICAL DEVICE L5-S1 (64996) 5. USE OF ZscalerATINO FOR SCREW PLACEMENT (20699) USE OF IONM ALL SCREWS TESTING ABOVE 20 MA USE OF IO MICROSCOPE Implants: -GLOBUS CREO SCREW AND RODS -LIFE SPINE EXPANDABLE CAGE 10MM 8-16 15 DEG -MAGNATOS, ARTHROECLL, ALLOCELL, AUTOGRAFT Anesthesia: GETA Surgeon: Per Gtz Hose Seamer #1: Isaak Polk (BRIAN Servin Was present and assisted with all aspects of the case from positioning to dressing placement) Estimated Blood Loss (ml): 50 IV fluids (ml): 1,200 Urine output (ml): 0 Pathology: none sent Condition: stable Disposition: PACU Indications for Procedure: Ms. Ortiz is presenting for evaluation of low back pain. It was my pleasure to have seen and examined Ms. Ortiz. In our visit today we have had a chance to go over subjective complaints, physical examination findings and treatments including the natural course history without intervention and various interventional options. The patients imaging demonstrates: XRay Lumbar Multiview (AP, Lateral, Flexion, Extension) with AP pelvis; 5 views taken at [facility] on 03/03/23: - Reviewed with the patient in office today. Mild multilevel degenerative changes with preserved alignment.Multilevel diminished disc height, more prominent L5-S1.Vertebral body heights are preserved.No acute osseous abnormalities. [facility] from03/17/23 of Lumbar Spine: - Reviewed with the patient today. -L5-S1 spondylosis with stenosis b/l foraminal and mild central. There is severe disc collapse, facet arthrosis and insufficiency as well as segmental kyphotic collapse due to the spondylosis. Moderate spondylotic changes L4-5 noted as well. Some minor disc bulging here. No fracture. NO lesions. On physical exam, Ms. Ortiz demonstrates: The patient reports experiencing a burning, pinching, and ache-like pain throughout the low back that has remai florecita constant since she was last seen in office on 04/09/2023. The patient also experiences continued pain throughout the bilateral lower extremities, worse throughout the right leg at this time. The patient notes that her bilateral leg pain is associated with numbness and tingling. The patient states that her pain is exacerbated with all activity, but mostly with prolonged walking or standing. The patient continues to experience severe sleep disturbances due to her ongoing symptoms. The patient notes that her symptoms have been worsening and are starting to significantly affect her overall quality of life. I have explained to the patient that as their condition progresses it will cause further neurological deficits and eventual paralysis. Based on the patients imaging, physical exam, and the rapid progression and disabling nature of their symptoms, at this time I recommend surgery in the form of a: L5-S1 MIS TLIF, right-sided approach. I discussed the risk and benefits of this procedure at length with Ms. Ortiz. The patient agreed to considered pursuing the procedure above mentioned. Prior to surgery, she should follow up with her PCP (Cardio, ID, IM etc) for clearance. Questions were invited and answered, and the patient wishes to proceed as outlined below. Currently, I am recommendin. L5-S1 MIS TLIF, right-sided approach Description of Procedure: L5-S1 MIS TLIF STEPHANIE (R) The patient was seen and examined in the preoperative area. All preoperative protocols were followed. Informed consent was obtained, risks and benefits of the procedure were discussed at length. Risks including bleeding infection damage to the surrounding tissue and risk of reoperation were discussed with the patient. Risk of anesthesia up to and including was discussed with the patient. These are outlined in the risk review. They were willing to accept these risks and all the risks of surgery. The patient was given a weight-based dose of antibiotics in the form of 2 g Ancef. The patient was seen and evaluated by the anesthesia team who deemed them fit for surgery. The site was marked, the patient was willing to proceed with the procedure. The patient was transferred to the operative suite by the Department of anesthesia. They were then drifted off to sleep by the department anesthesia and GETA was performed. The patient tolerated this well. Dia catheter was placed by nursing staff, a-traumatically. Once confirmation of lines and ventilation the patient was transferred to a prone Louis table very carefully. All bony prominences including wrists, elbows, axilla, chest, hips, and thighs, and feet were padded very well. Special attention was paid to the genitalia, and these were padded accordingly. SCDs were placed on bilateral lower extremities and were connected. Arms were well padded and placed on arm boards up and out in the 90/90 position. Once in position, again we confirmed good ventilation capabilities and that lines were running appropriately. The patients Lumbar spine was then exposed. 1010s were placed outlining the incision site. Standard alcohol was used to clean the incision site and allowed to dry. C-arm was used to needle localize the pedicles at L5-S1 and bio-talisha the patient and confirm level for incision which was marked with a skin marker. Operative briefing was performed with all teams and everyone in agreement to proceed. The patient was then prepped and draped in a normal sterile fashion. Timeout was then performed, and all parties agreed with the procedure to be performed. Skin nicks were made over the PSIS on the right side and pins placed for the [employer] Navigation tracker. This was secured and then a 3D Zhiem spin was registered. Once registered it was tested and confirmed to be accurate. We then targeted pedicles b/l at L5 and S1 using navigated Jamshidi and drill guide. Wires were then placed in their void and confirmed to be in good position on AP and Lateral. Contralateral right side screws were then placed over wires and tested and they all tested above 20 mA. Attention was then turned to interbody fusion at L5-S1. Tubular retractor system was placed at the interspace of L5-S1 using biplanar c arm. Once in position and dilated up to 26mm tube it was locked to the bed and confirmed in good position. Microscope was then brought in for visualization. Limited myomectomy was performed and laminectomy, complete facetectomy and foraminotomy performed at L5-S1 using high speed dayo and Kerrison rongure. The ligamentum was removed and dural sac decompressed. Exiting and traversing roots visualized and decompressed. Neural elements were then protected, and disc space accessed with an osteotome. Sequential shaving then done under lateral imaging and complete discectomy performed using brandon, pituitary and curette. Once good b leeding endplates accomplished and good height baptism with trials, a combination of autograft, allograft and synthetic placed anterior in the disc space. The cage was then selected and impacted into place under lateral imaging. The cage was then expanded restoring height, lordosis and alignment. The cage was backfilled with bone graft through a funnel. The slitter processed film removed and area inspected. Good cage placement, stable cage and no injuries. Area was irrigated copiously, and meticulous hemostasis achieved. The tubular retractor was then removed under direct visualization. Screws were then selected and placed over the previously placed wires on the ipsilateral side. This was done in the fashion described above. Screws were then tested, and all tested above 20 mA. Shells were then placed on the tabs. Danilo length was then measured, and rods selected. They were then placed through the MIS tabs, subfascial. These were then locked into place with set screws and final tightened. Danilo holders removed and images taken showing good placement of rods good lordosis and baptism of height. Tabs were broken off. Wounds were then copiously irrigated with NSS. [place] used for TP decortication and mixture of MagnatOs, allograft and autograft packed posterolateral. Facia was then closed with 0 Vircyl. Deep subq closed with 0 Vicryl. Superficial subq closed with 2-0 Vicryl and skin with saritha. Wound edges approximated very well. Wound was then cleaned with alcohol and dried. Wounds dressed in Optifoam dressings. The patient was then transferred off the table back to their hospital bed a- traumatically. They were extubated by the department of anesthesia. They were then transferred to PACU in stable condition having tolerated the procedure with no complications.
--- NOTE | 2023-06-15 14:19 | FL ---
Intraoperative/procedural fluoroscopic services were provided. Total fluoroscopy time is 59 seconds w ith a total of 6 submitted images to PACS. Please see the operative/procedural note for further detai ls. DAP: 4634.22 cGycm2
[2023-06-15] MEDS: HYDROmorphone 1 MG/ML 1 ML SYRINGE IVP PRN ×3 (14:28→22:55)
[2023-06-15] MEDS: HYDROmorphone 0.5 MG/0.5 ML SYRINGE IVP PRN ×2 (14:42→14:51)
--- NOTE | 2023-06-15 16:50 | CT ---
EXAMINATION TYPE: CT lumbar spine wo con CT DLP: 948.8 mGycm, Automated exposure control for dose reduction was used. DATE OF EXAM: 06/15/2023 4:40 PM COMPARISON: 06/15/2023. CLINICAL INDICATION:Female, 48 years old with history of s/p L5-S1 MIS TLIF; PHH, s/p L5-S1 MIS TLIF TECHNIQUE: Multiple axial images were obtained from the midportion of T11 through the sacroiliac jean carlos nts. Soft tissue and bone windows in coronal and sagittal planes were obtained and reviewed. Contrast used: none. Oral contrast used: none. FINDINGS: Postsurgical changes to the lumbar spine with fixation hardware at L5 and S1. Discectomy at L5-S1. Hughes rdware limits evaluation at these levels. Hardware appears intact. No evidence of fracture. Postsurgical changes in the soft tissues with foci of gas present. Posterior back skin saritha are p resent. Atherosclerosis of the arterial vasculature. Right upper quadrant cholecystectomy clips. IMPRESSION: Postsurgical changes without evidence of immediate post operative complication.
[2023-06-15] MEDS: GABAPENTIN 300 MG CAP PO SCH ×2 (17:06→20:47)
[2023-06-15] MEDS: ACETAMINOPHEN TAB 325 MG TAB PO SCH ×2 (17:21→22:56)
[2023-06-15] MEDS: CYCLOBENZAPRINE 5 MG TAB PO PRN (20:51)
[2023-06-15] MEDS: HYDROcodone/APAP 10-325MG 1 EACH TAB PO PRN (20:51)
--- NOTE | 2023-06-16 05:38 | P.CONS ---
History of Present Illness - Reason for Consult Consult date: 06/15/23 perioperative medical managment - History of Present Illness 48 year old female with no significant past medical history patient is seen post lumbar fusion , due to back injury in the past after a fall , resulted in chronic pain interfering with her quality of life , she tolerated procedure well, she already walked with assistance. denies any chest pain or SOB. tolerated PO intake she denies any medical concerns at this time she denies any new focal neurodeficits at this time review of systems Pertinent positives as noted in HPI. All other systems were reviewed and are negative on exam Constitutional: No acute distress, conversant, pleasant Eyes: Anicteric sclerae, moist conjunctiva, Pupils equal round reactive to light ENMT: NC/AT Oropharynx clear, no erythema, or exudates Neck: Supple, no masses, or JVD No carotid bruits No thyromegaly Lungs: Clear to auscultation Clear to percussion Normal respiratory effort, no accessory muscle use Cardiovascular: Heart regular in rate and rhythm, No murmurs, gallops, or rubs No peripheral edema Abdominal: Soft Nontender, no guarding, rebound or rigidity Abdomen moving with respiration Normoactive bowel sounds No hepatomegaly, No splenomegaly No palpable mass No abdominal wall hernia noted Extremities: No digital cyanosis No clubbing Pedal pulses intact and symmetrical Radial pulses intact and symmetrical No calf tenderness Psychiatric: Alert and oriented to person, place and time Appropriate affect fair judgement Neuro Muscles Strength 5/5 in all 4 extremities Sensation to light touch grossly present throughout Cranial nerves II-XII grossly intact Lymphatics: no palpable cervical or supraclavicular lymph nodes Past Medical History Past Medical History: Cancer, Musculoskeletal Disorder, Osteoarthritis (OA) Additional Past Medical History / Comment(s): cervical cancer-had surg. History of Any Multi-Drug Resistant Organisms: None Reported Past Surgical History: Cholecystectomy Additional Past Surgical History / Comment(s): conization of cervix Past Anesthesia/Blood Transfusion Reactions: No Reported Reaction Past Psychological History: No Psychological Hx Reported Smoking Status: Current every day smoker Past Alcohol Use History: Occasional Additional Past Alcohol Use History / Comment(s): quit smoking cigarettes couple months ago, smoked for 30 yrs., 1ppd does vape currently Past Drug Use History: Marijuana Additional Drug Use History / Comment(s): occasional use - Past Family History Mother Family Medical History: No Reported History Medications and Allergies Home Medications Medication Instructions Recorded Confirmed Type Cyclobenzaprine [Flexeril] 5 mg PO DIRECTED PRN 06/11/23 06/11/23 History Ibuprofen [Motrin] 800 mg PO Q6H PRN 06/11/23 06/11/23 History Allergies Allergy/AdvReac Type Severity Reaction Status Date / Time No Known Allergies Allergy Verified 06/15/23 08:22 Physical Exam Vitals: Vital Signs Temp Pulse Pulse Resp BP Pulse Ox 06/16/23 01:32 98.1 F 73 99/63 97 06/15/23 19:54 97.8 F 65 17 107/65 100 06/15/23 16:47 63 120/57 100 06/15/23 16:32 76 109/66 100 06/15/23 16:14 74 117/74 99 06/15/23 15:58 61 124/78 100 06/15/23 15:44 76 110/68 100 06/15/23 15:28 67 16 110/67 100 06/15/23 15:16 65 16 117/61 98 06/15/23 15:03 65 16 112/61 99 06/15/23 14:48 85 16 107/59 100 06/15/23 14:33 74 16 132/54 100 06/15/23 14:18 97.2 F L 89 16 99/60 100 06/15/23 08:41 98.1 F 70 16 111/53 98 Intake and Output 06/15/23 06/15/23 06/16/23 14:59 22:59 06:59 Intake Total 1150 880 Output Total 175 250 Balance 975 630 Intake: IV 1150 400 Oral 480 Output: Urine 125 250 Estimated Blood Loss 50 Other: Voiding Method Indwelling Catheter Weight 63.503 kg Assessment and Plan Assessment: s/p lumbar fusion POD zero management per primary orthopedic team vital signs stable check CBC , BMP in AM full code patient stable from medical stand point thank you for this consultation
[2023-06-16] MEDS: LACTATED RINGERS 1,000 ML IV SCH (06:26)
[2023-06-16] MEDS: HYDROcodone/APAP 10-325MG 1 EACH TAB PO PRN (06:37)
[2023-06-16] MEDS: CYCLOBENZAPRINE 5 MG TAB PO PRN (06:38)
[2023-06-16] MEDS: ACETAMINOPHEN TAB 325 MG TAB PO SCH ×2 (06:38→12:40)
[2023-06-16] MEDS: GABAPENTIN 300 MG CAP PO SCH (08:29)
[2023-06-16 09:30] LABS: Basophils # (A) 0.05 X 10*3/uL (0.00-0.10); Basophils % (A) 0.5 %; Eosinophils # (A) 0.21 X 10*3/uL (0.04-0.35); Eosinophils % (A) 2.2 %; HCT 36.3 % (37.2-46.3); HGB 11.6 d/dL (12.0-15.0); Lymphocytes % (A) 18.8 %; MCH 31.2 pg (27.0-32.0); MCV 97.6 FL (80.0-97.0); Mean Platelet Volume 9.5 FL (9.5-12.2); Monocytes # (A) 0.76 X 10*3/uL (0.20-1.00); Monocytes % (A) 7.9 %; NRBC Per 100 WBC 0 X 10*3/uL (0.00-0.01); Neutrophils # (A) 6.73 X 10*3/uL (1.80-7.70); Neutrophils % (A) 70.4 %; Platelet Count 295 X 10*3/uL (140-440); RBC 3.72 X 10*6/uL (4.10-5.20); RDW 12.1 % (11.5-14.5); WBC 9.57 X 10*3/uL (4.50-10.00)
--- NOTE | 2023-06-16 09:39 | P.PN ---
Subjective Progress Note Date: 06/16/23 Principal diagnosis: 1. L5-S1 spondylosis with stenosis 2. Bilateral lower extremity radiculopathy 3. Low back pain Patient seen and examined this morning. Patient is sitting up in chair area she states her pain is managed on current regimen. Surgical dressing to the lumbar spine is clean dry and intact. Patient states she has been ambulatory to the restroom. Andrews catheter may be discontinued. Patient is looking forward to working with physical therapy today and possibly discharged later this afternoon. Patient denies need for any assistive devices, she states she feels steady on her feet. Patient does feel safe at home. Patient has been afebrile, denies nausea/vomiting, or chest pain. Objective - Vital Signs Vital signs: Vital Signs Temp 98.2 F 06/16/23 07:13 Pulse 88 06/16/23 07:13 Resp 15 06/16/23 07:13 BP 100/65 06/16/23 07:13 Pulse Ox 97 06/16/23 07:13 FiO2 Intake & Output 06/15/23 06/16/23 06/16/23 18:59 06:59 18:59 Intake Total 2030 260 Output Total 425 410 Balance 1605 -150 Weight 63.503 kg Intake: IV 1550 Intake, IV Titration 260 Amount Lactated Ringers 1,000 ml 160 @ 0 mls/hr IV .[facility] Rx#:[id number] ceFAZolin 2 gm In Sodium 100 Chloride 0.9% 50 ml @ 100 mls/hr IVPB Q8H [facility] Rx#: [id number] Oral 480 Output: Urine 375 410 Estimated Blood Loss 50 Other: Voiding Method Indwelling Catheter - Exam Physical Examination General: The patient is awake and alert, in no acute distress Skin: Skin is warm and dry with no obvious rashes or lesions. Surgical incisions to the paralumbar spine, dressings are clean dry and intact. Eye: Pupils are equal, round and reactive to light, extra-ocular movements are intact; there is normal conjunctiva bilaterally. Neck: The neck is supple, there is no tenderness and ROM intact. Cardiovascular: There is a regular rate and rhythm. No murmur, rub or gallop is appreciated. Respiratory: Lungs are clear to auscultation, respirations are non-labored, breath sounds are equal. Gastrointestinal: Soft, non-distended, non-tender abdomen. Back: There is no tenderness to palpation in the midline, paralumbar, parathoracic or buttocks region. There is no obvious deformity . Musculoskeletal: ROM limited secondary to pain and stiffness from surgical procedure. Muscle strength in all major muscle groups of bilateral upper extremities 5/5, bilateral lower extremities 4/5. Neurological: CN 2-12 intact. There are no obvious motor or sensory deficits. Movement and coordination equal and intact. Sensory exam to light touch intact C5-T1 and intact from L2-S1. Reflexes 2/4 in bilateral upper and lower extremities. Negative Hoffmans, babinski, and clonus signs. Psychiatric: Cooperative, appropriate mood & affect, normal judgment. - Labs CBC & Chem 7: 06/16/23 04:51 Assessment and Plan Assessment: Postop day 1: L5-S1 MIS TLIF, right-sided approach 1. L5-S1 spondylosis with stenosis 2. Bilateral lower extremity radiculopathy 3. Low back pain Plan: -Appreciate clinical operations consultant and team management. -Activity: Ambulate QID, OOB all meals, up and about, limit lifting bending twisting to less than 5 lbs. Use walker or cane if needed for stability. -Daily PT/OT, increase ambulation strength and balance. -Pain control: Adequate at this time -Meds: reviewed -GI ppx: senna, Miralax -DC andrews -DVT PPX: OK to restart Heparin tonight -Hygiene: Shower today. Maintain dressing clean and dry. Meticulous cleaning after BMs away from the incision site -Encourage IS 10x/hr -Dispo: Anticipate discharge home today *I reviewed and discussed this case with my attending Dr. Gtz, whom has reviewed this chart and films and is in agreement with assessment and plan of care as outlined above. I have personally seen and examined the patient, performed the documentation and the assessment and plan as written. Number of minutes spent on the visit: 20m.
--- NOTE | 2023-06-16 10:08 | P.DS ---
Providers Date of admission: 06/15/2023 Expected date of discharge: 06/16/23 Attending physician: Per Gtz DO Consults: 06/15/23 13:45 Consult Physician Routine Consulting Provider: Eleonora Ivory Consult Reason/Comments: medical maanagement s/p L5-S1 MIS TLIF Do you want consulting provider notified?: Yes Primary care physician: Alexandra Smiley Hospital Course: Date of admission: 06/15/2023 Date of discharge: 06/16/2023 Admission diagnosis: 1. L5-S1 SPONDYLOSIS, SEVERE 2. L5-S1 FORAMINAL STENOSIS 3. LOW BACK PAIN 4. LE RADICULOPATHY Discharge diagnosis: [Same] Attending physician: Dr. Gtz Surgical procedures: L5-S1 posterolateral interbody fusion Brief history: Patient is a 48-year-old female with a history of L5-S1 spondylosis; L5-S1 foraminal stenosis; lower extremity radiculopathy and low back pain. At this point patient has failed conservative treatment measures and has opted to proceed with a elective L5-S1 posterolateral interbody fusion. Hospital course: Details of patient's surgery can be found in operative report. Patient tolerated the procedure well and was subsequently transported to orthopedic floor. Patient's orthopeidc and medical care was provided daily. Patient had daily laboratory tests performed for evaluation of overall blood counts. Patient had daily physical therapy to include strengthening range of motion as well as education with walker ambulation. Patient was noted to have a relatively uneventful postoperative course. Patient reported satisfactory pain control with oral pain medications by postoperative day 1. Patient showed satisfactory progress with physical therapy. Patient moved steadily through the program and had no difficulty meeting the goals by postoperative day 1. Given patient's otherwise satisfactory course and having met physical therapy goals, plan is to discharge patient [home] on postoperative day 1. Discharge condition/disposition: Patient will be discharged [home] in stable condition. Discharge medications: Instructions are given on resumption of patient's normal daily medications per primary care recommendation, in addition patient will be prescribed Dix; Flexeril; Duricef; gabapentin; senna Spine Discharge and Recovery Instructions Keep incision clean, dry, intact. While showering, cover dressing with Saran wrap. You may remove the silver foam dressing beginning 06/20/2023. Once dressing is removed, it is okay to shower directly over incision. Date of Surgery: 06/15/2023 Diagnosis: 1. L5-S1 SPONDYLOSIS, SEVERE 2. L5-S1 FORAMINAL STENOSIS 3. LOW BACK PAIN 4. LE RADICULOPATHY Procedure: L5-S1 posterolateral interbody fusion Medications: See medication list All medication refills should be obtained through your primary care doctor or your clinic spine surgeon. Please discuss prescription refills at your follow up appointment. Do not call the hospital for medication refills. Dressing: Leave your dressing in place for a total of 5 days post operatively. Then you may remove your dressing and leave open to air. Keep the area clean and if not able to keep area clean, then cover with sterile gauze and tape. Showering: You may shower 3 days after your procedure allowing soap and water to run over incision. Do not scrub. Do not soak. Blot dry. Follow up: Please confirm a follow up appointment with your surgeon 3 weeks post operatively. Please make an appointment to follow up with your PCP in 1-2 weeks after surgery for evaluation 3 phase, 3-week plan POST OP WEEKS 1-3 1. Lifting/carrying/pushing/pulling limited to less than 5 pounds. 2. Do not sit for longer than 15 minutes at one time. Get up and walk around. Prolonged sitting is NOT advised. If you lay down, see if you can tolerate laying down on you front (belly side) 3. Walk for periods of 15 minutes = 1 mile but no longer; do it multiple times times each day. 4. Ice your low back after activity. POST OP WEEKS 3-6 1. Lifting limited to less than 20 pounds. 2. Do not sit for longer than 30 minutes at a time. Frequently change positions. Use a sit-to stand workstation or take frequent breaks from sitting if you have returned to work. 3. Walk for 30 minutes each day. If possible, do these three or more times a day POST OP WEEKS 6+ At your 6-week appointment we will give you a physical therapy referral to focus on a core stabilization and strengthening program. You should also work on leg & buttock strengthening, hamstring & quadriceps stretching, and continue a low impact aerobic activity program such as swimming, walking, or riding a stationary bicycle. During the initial 6 weeks after your surgery, you are at the highest risk of re-injuring your spine. You should generally avoid BLTs (bending, lifting and twisting combination motions) and follow the above guidelines to reduce the chance of reinjury. You can anticipate post op appointments in our office at approximately 3 weeks and 6 weeks after your surgery. INCISION CARE: If your incision is not draining you do NOT need to cover it with a dressing. Keep your incision clean, dry and intact. In most cases, we apply skin glue, saritha or sutures to the incision at the time of surgery. This will be like a crust or have the appearance of a scab and will fall off in time on its own. The stitches or saritha need to be removed at 3 weeks post op appointment. You may begin to shower 3 days after surgery (this allows the glue to dotson well). However, please avoid scrubbing the incision site or peeling off any of the skin glue. This will ensure optimal healing of your incision. Also, during this time avoid soaking the incision area in water - this includes swimming pools, hot tubs or baths. No ointments, lotions or oils on the incision until your surgeon allows. Leave saritha, sutures or glue in place. Neurological dysfunction that comes on suddenly can also be a sign of a stroke. Below some common symptoms of a stroke are listed: B - balance difficulty such as sudden onset walking or leaning to one side - NEW E - eye problem such as sudden double vision or trouble seeing on one side - NEW F - Facial weakness or numbness on one side - NEW A - Arm or leg weakness or numbness on one side - NEW S - Slurred speech or difficulty with word finding - NEW T - Time is BRAIN! Call 911 as soon as you recognize these symptoms Diet: Consume a regular diet rich in vegetables and lean protein such as chicken or fish. You should consume in a ratio of approximately 20% fats|40% carbohydrates|40%protein. Vegetables, sweet potatoes, brown rice or quinoa are examples of good carbohydrates. Chips, white bread, cookies and sweets/sugar are examples of bad carbohydrates. Limit your bad carbs, go wild with good carbs. 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 (1) Get Active. Physical activity can help people lose weight, control high blood pressure and cholesterol, feel emotionally better, and sleep better. (2) Control Cholesterol. Avoid a diet high in saturated fat, trans fat, & cholesterol. Limit whole milk & cream, ice cream, butter, egg yolks, processed meats (like sausage and hot dogs), and fatty meats. Choose healthy foods that are low in saturated fat, trans fat and cholesterol which include: Fruits and vegetables, fiber rich grain products (like whole grain pasta and brown rice), lean meat such as chicken, fish, nuts, seeds, and legumes. (3) Eat Better. Eat small portions. Shop at the grocery with a list and do not stray from it. Tips for a healthy diet include: Limit sodium intake to less than 1500mg daily, avoid prepackaged, processed, and fast foods, choose a diet rich in fruits, vegetables, and whole grain, high fiber foods, and limit saturated & cholesterol in your diet. (4) Manage Blood Pressure. If you have high blood pressure, you should have a cuff at home so that you can check your blood pressure regularly. Be sure you have a good cuff. An arm one is generally better than a wrist one. Bring the cuff to a doctor's appointment to validate that the measurements that your cuff are taking are accurate. Take your blood pressure twice daily when you are sitting down and relaxing. Record the numbers in a log and bring this log with you to your doctors' appointments. (5) Lose Weight if your BMI is above 25. A healthy BMI is between 19-25. To calculate Your BMI, you may use a Standard BMI Calculator on the NIH BMI website: <www.nhlbi.nih.gov/guidelines/obesity/BMI/bmicalc.htm>. Weigh oneself daily. If you are overweight, set a goal to lose weight. A pound a week loss if needed is a good target. (6) Reduce Blood Sugar. Limit foods and liquids with "added sugars." (Added sugars include sucrose, fructose, glucose, maltose, dextrose, high fructose corn syrup, corn syrup, concentrated fruit juice and honey). (7) Stop Smoking. If you smoke, quitting smoking is one of the best things that you can do for your health. Smoking increases your risk of heart attack, stroke, and peripheral vascular disease, which is a build-up of plaque in your arteries. Please discard all the cigarettes and lighters in your house. Have a plan for what you will do when you have the urge to smoke. Direct and second- hand smoke shortens your life as well as the lives of your family, friends and others around you. For your health and the health of those around you, please consider quitting! Proper Bending Body Mechanics: Maintain a wide stance with one foot slightly in front of the other. Keep your back straight. Bend utilizing the strength in your hips and knees. Do not bend at the waist. Maintain the lifted object at your waist-level close to your body. Avoid lifting weight that causes immediately pain or pain anywhere in the body afterwards. Smoking/Nicotine If there was ever one thing that you could do to increase your overall health, decrease your risk of cardiovascular problems by about 39% the second you make the choice, it is to STOP SMOKING. Your body's most instant gratification is the second you stop smoking. We have all heard the studies, read the articles but it is true, smoking is extremely bad for your overall health, and moreover it is detrimental to your bone health. Nicotine, IN ANY FORM, kills bone cells, prevents your body from healing fractures, and significantly prolongs healing after surgery. In spine surgery specifically, it increases your risk of not healing your bones to create a fusion and increases your risk of having a revision surgery due to this up to 60%. I know it is hard. I know it feels impossible. But there are ways. Take control of your life. We are here to help you through it. And when you are ready, ask us and we can direct you to help if you desire. Use the START Plan to Quit Smoking (please visit the [employer].org website listed below for more information): S = Set a quit date. Choose a date within the next 2 weeks, so you have enough time to prepare without losing your motivation to quit. If you mainly smoke at work, quit on the weekend, so you have a few days to adjust to the change. T = Tell family, friends, and co-workers that you plan to quit. Let your friends and family in on your plan to quit smoking and tell them you need their support and encouragement to stop. Look for a quit yarely who wants to stop smoking as well. You can help each other get through the rough times. A = Anticipate and plan for the challenges you'll face while quitting. Most people who begin smoking again do so within the first 3 months. You can help yourself make it through by preparing ahead for common challenges, such as nicotine withdrawal and cigarette cravings. R = Remove cigarettes and other tobacco products from your home, car, and work. Throw away all your cigarettes (no emergency pack!), lighters, ashtrays, and matches. Wash your clothes and freshen up anything that smells like smoke. Shampoo your car, clean your drapes and carpet, and steam your furniture. T = Talk to your doctor about getting help to quit. Your doctor can prescribe medication to help with withdrawal and suggest other alternatives. If you can't see a doctor, you can get many products over the counter at your local pharmacy or grocery store, including the nicotine patch, nicotine lozenges, and nicotine gum. Resources for Quitting Smoking: <https://www.[place].gov/documents/[facility]/Quit_Tobacco_Resources_for_patients_313 480_7.pdf> Supplementation: Take recommended dosages of Vitamin D and Calcium to help fortify your bones and help them to heal. See your health maintenance packet for dosages and recommended levels. DVT/VTE prophylaxis: You will be given compression stockings from the hospital. Wear these daily for the first two weeks after surgery. You may take them off at night. You may be prescribed a medication to help thin your blood. Take this as directed. If you are not prescribed this medication, early and frequent ambulation has been shown to be the best prophylaxis to deep vein thrombosis and sequelae related to this event. Assessment: 1. L5-S1 SPONDYLOSIS, SEVERE 2. L5-S1 FORAMINAL STENOSIS 3. LOW BACK PAIN 4. LE RADICULOPATHY Procedures: L5-S1 POSTERIOLATERAL AND INTERBODY FUSION Patient Condition at Discharge: Good Plan - Discharge Summary Discharge Rx Participant: Yes New Discharge Prescriptions: New Cyclobenzaprine [Flexeril] 5 mg PO TID #21 tablet Gabapentin 300 mg PO TID #30 cap cefaDROXiL [Duricef] 500 mg PO Q12HR 5 Days #10 cap HYDROcodone/APAP 10-325MG [Dix 10-325] 1 - 2 tab PO Q6HR PRN #36 tab PRN Reason: Pain Sennosides/Docusate Sodium [Senna Plus 8.6-50 mg Softgel] 1 each PO DAILY #20 cap No Action Ibuprofen [Motrin] 800 mg PO Q6H PRN PRN Reason: Pain Cyclobenzaprine [Flexeril] 5 mg PO DIRECTED PRN PRN Reason: Muscle Spasm Discharge Medication List Cyclobenzaprine [Flexeril] 5 mg PO DIRECTED PRN 06/11/23 [History] Ibuprofen [Motrin] 800 mg PO Q6H PRN 06/11/23 [History] Cyclobenzaprine [Flexeril] 5 mg PO TID #21 tablet 06/16/23 [Rx] Gabapentin 300 mg PO TID #30 cap 06/16/23 [Rx] HYDROcodone/APAP 10-325MG [Dix 10-325] 1 - 2 tab PO Q6HR PRN #36 tab 06/16/23 [Rx] Sennosides/Docusate Sodium [Senna Plus 8.6-50 mg Softgel] 1 each PO DAILY #20 cap 06/16/23 [Rx] cefaDROXiL [Duricef] 500 mg PO Q12HR 5 Days #10 cap 06/16/23 [Rx] Follow up Appointment(s)/Referral(s): Per Gtz DO [Doctor of Osteopathic Medicine] - 06/30/23 9:30 am Activity/Diet/Wound Care/Special Instructions: Spine Discharge and Recovery Instructions Keep incision clean, dry, intact. While showering, cover dressing with Saran wrap. You may remove the silver foam dressing beginning 06/20/2023. Once dressing is removed, it is okay to shower directly over incision. Date of Surgery: 06/15/2023 Diagnosis: 1. L5-S1 SPONDYLOSIS, SEVERE 2. L5-S1 FORAMINAL STENOSIS 3. LOW BACK PAIN 4. LE RADICULOPATHY Procedure: L5-S1 posterolateral interbody fusion Medications: See medication list All medication refills should be obtained through your primary care doctor or your clinic spine surgeon. Please discuss prescription refills at your follow up appointment. Do not call the hospital for medication refills. Dressing: Leave your dressing in place for a total of 5 days post operatively. Then you may remove your dressing and leave open to air. Keep the area clean and if not able to keep area clean, then cover with sterile gauze and tape. Showering: You may shower 3 days after your procedure allowing soap and water to run over incision. Do not scrub. Do not soak. Blot dry. Follow up: Please confirm a follow up appointment with your surgeon 3 weeks post operatively. Please make an appointment to follow up with your PCP in 1-2 weeks after surgery for evaluation 3 phase, 3-week plan POST OP WEEKS 1-3 1. Lifting/carrying/pushing/pulling limited to less than 5 pounds. 2. Do not sit for longer than 15 minutes at one time. Get up and walk around. Prolonged sitting is NOT advised. If you lay down, see if you can tolerate laying down on you front (belly side) 3. Walk for periods of 15 minutes = 1 mile but no longer; do it multiple times times each day. 4. Ice your low back after activity. POST OP WEEKS 3-6 1. Lifting limited to less than 20 pounds. 2. Do not sit for longer than 30 minutes at a time. Frequently change positions. Use a sit-to stand workstation or take frequent breaks from sitting if you have returned to work. 3. Walk for 30 minutes each day. If possible, do these three or more times a day POST OP WEEKS 6+ At your 6-week appointment we will give you a physical therapy referral to focus on a core stabilization and strengthening program. You should also work on leg & buttock strengthening, hamstring & quadriceps stretching, and continue a low impact aerobic activity program such as swimming, walking, or riding a stationary bicycle. During the initial 6 weeks after your surgery, you are at the highest risk of re-injuring your spine. You should generally avoid BLTs (bending, lifting and twisting combination motions) and follow the above guidelines to reduce the chance of reinjury. You can anticipate post op appointments in our office at approximately 3 weeks and 6 weeks after your surgery. INCISION CARE: If your incision is not draining you do NOT need to cover it with a dressing. Keep your incision clean, dry and intact. In most cases, we apply skin glue, saritha or sutures to the incision at the time of surgery. This will be like a crust or have the appearance of a scab and will fall off in time on its own. The stitches or saritha need to be removed at 3 weeks post op appointment. You may begin to shower 3 days after surgery (this allows the glue to dotson well). However, please avoid scrubbing the incision site or peeling off any of the skin glue. This will ensure optimal healing of your incision. Also, during this time avoid soaking the incision area in water - this includes swimming pools, hot tubs or baths. No ointments, lotions or oils on the incision until your surgeon allows. Leave saritha, sutures or glue in place. Neurological dysfunction that comes on suddenly can also be a sign of a stroke. Below some common symptoms of a stroke are listed: B - balance difficulty such as sudden onset walking or leaning to one side - NEW E - eye problem such as sudden double vision or trouble seeing on one side - NEW F - Facial weakness or numbness on one side - NEW A - Arm or leg weakness or numbness on one side - NEW S - Slurred speech or difficulty with word finding - NEW T - Time is BRAIN! Call 911 as soon as you recognize these symptoms Diet: Consume a regular diet rich in vegetables and lean protein such as chicken or fish. You should consume in a ratio of approximately 20% fats|40% carbohydrates|40%protein. Vegetables, sweet potatoes, brown rice or quinoa are examples of good carbohydrates. Chips, white bread, cookies and sweets/sugar are examples of bad carbohydrates. Limit your bad carbs, go wild with good carbs. 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 (1) Get Active. Physical activity can help people lose weight, control high blood pressure and cholesterol, feel emotionally better, and sleep better. (2) Control Cholesterol. Avoid a diet high in saturated fat, trans fat, & cholesterol. Limit whole milk & cream, ice cream, butter, egg yolks, processed meats (like sausage and hot dogs), and fatty meats. Choose healthy foods that are low in saturated fat, trans fat and cholesterol which include: Fruits and vegetables, fiber rich grain products (like whole grain pasta and brown rice), lean meat such as chicken, fish, nuts, seeds, and legumes. (3) Eat Better. Eat small portions. Shop at the grocery with a list and do not stray from it. Tips for a healthy diet include: Limit sodium intake to less than 1500mg daily, avoid prepackaged, processed, and fast foods, choose a diet rich in fruits, vegetables, and whole grain, high fiber foods, and limit saturated & cholesterol in your diet. (4) Manage Blood Pressure. If you have high blood pressure, you should have a cuff at home so that you can check your blood pressure regularly. Be sure you have a good cuff. An arm one is generally better than a wrist one. Bring the cuff to a doctor's appointment to validate that the measurements that your cuff are taking are accurate. Take your blood pressure twice daily when you are sitting down and relaxing. Record the numbers in a log and bring this log with you to your doctors' appointments. (5) Lose Weight if your BMI is above 25. A healthy BMI is between 19-25. To calculate Your BMI, you may use a Standard BMI Calculator on the NIH BMI website: <www.nhlbi.nih.gov/guidelines/obesity/BMI/bmicalc.htm>. Weigh oneself daily. If you are overweight, set a goal to lose weight. A pound a week loss if needed is a good target. (6) Reduce Blood Sugar. Limit foods and liquids with "added sugars." (Added sugars include sucrose, fructose, glucose, maltose, dextrose, high fructose corn syrup, corn syrup, concentrated fruit juice and honey). (7) Stop Smoking. If you smoke, quitting smoking is one of the best things that you can do for your health. Smoking increases your risk of heart attack, stroke, and peripheral vascular disease, which is a build-up of plaque in your arteries. Please discard all the cigarettes and lighters in your house. Have a plan for what you will do when you have the urge to smoke. Direct and second- hand smoke shortens your life as well as the lives of your family, friends and others around you. For your health and the health of those around you, please consider quitting! Proper Bending Body Mechanics: Maintain a wide stance with one foot slightly in front of the other. Keep your back straight. Bend utilizing the strength in your hips and knees. Do not bend at the waist. Maintain the lifted object at your waist-level close to your body. Avoid lifting weight that causes immediately pain or pain anywhere in the body afterwards. Smoking/Nicotine If there was ever one thing that you could do to increase your overall health, decrease your risk of cardiovascular problems by about 39% the second you make the choice, it is to STOP SMOKING. Your body's most instant gratification is the second you stop smoking. We have all heard the studies, read the articles but it is true, smoking is extremely bad for your overall health, and moreover it is detrimental to your bone health. Nicotine, IN ANY FORM, kills bone cells, prevents your body from healing fractures, and significantly prolongs healing after surgery. In spine surgery specifically, it increases your risk of not healing your bones to create a fu priya and increases your risk of having a revision surgery due to this up to 60%. I know it is hard. I know it feels impossible. But there are ways. Take control of your life. We are here to help you through it. And when you are ready, ask us and we can direct you to help if you desire. Use the START Plan to Quit Smoking (please visit the [employer] website listed below for more information): S = Set a quit date. Choose a date within the next 2 weeks, so you have enough time to prepare without losing your motivation to quit. If you mainly smoke at work, quit on the weekend, so you have a few days to adjust to the change. T = Tell family, friends, and co-workers that you plan to quit. Let your friends and family in on your plan to quit smoking and tell them you need their support and encouragement to stop. Look for a quit yarely who wants to stop smoking as well. You can help each other get through the rough times. A = Anticipate and plan for the challenges you'll face while quitting. Most people who begin smoking again do so within the first 3 months. You can help yourself make it through by preparing ahead for common challenges, such as nicotine withdrawal and cigarette cravings. R = Remove cigarettes and other tobacco products from your home, car, and work. Throw away all your cigarettes (no emergency pack!), lighters, ashtrays, and matches. Wash your clothes and freshen up anything that smells like smoke. Shampoo your car, clean your drapes and carpet, and steam your furniture. T = Talk to your doctor about getting help to quit. Your doctor can prescribe medication to help with withdrawal and suggest other alternatives. If you can't see a doctor, you can get many products over the counter at your local pharmacy or grocery store, including the nicotine patch, nicotine lozenges, and nicotine gum. Resources for Quitting Smoking: <https://www.[place].gov/documents/[facility]/Quit_Tobacco_Resources_for_patients_3 13480_7.pdf> Supplementation: Take recommended dosages of Vitamin D and Calcium to help fortify your bones and help them to heal. See your health maintenance packet for dosages and recommen ded levels. DVT/VTE prophylaxis: You will be given compression stockings from the hospital. Wear these daily for the first two weeks after surgery. You may take them off at night. You may be prescribed a medication to help thin your blood. Take this as directed. If you are not prescribed this medication, early and frequent ambulation has been shown to be the best prophylaxis to deep vein thrombosis and sequelae related to this event. Discharge Disposition: HOME SELF-CARE
[2023-06-16 11:01] LABS: BUN/Creat Ratio 19.17 Ratio (12.00-20.00); Blood Urea Nitrogen 11.5 mg/dL (9.0-27.0); Calcium 8.5 mg/dL (8.7-10.3); Carbon Dioxide 29.2 mmol/L (21.6-31.8); Chloride 101 mmol/L (96-109); Glucose 114 mg/dL (70-110); Sodium 138 mmol/L (135-145)
--- NOTE | 2023-06-16 11:40 | P.PN ---
Subjective Progress Note Date: 06/16/23 Subjective: Seen and examined at bedside. No acute events overnight. Pertinent positives and negatives as discussed above, a complete review of systems was performed and all other systems are negative. Vitals Signs Reviewed. General: nontoxic, no distress, appears at stated age Derm: warm, dry, back dressing not observed Head: atraumatic, normocephalic, symmetric Eyes: EOMI, no lid lag, anicteric sclera Mouth: no lip lesion, mucus membranes moist Cardiovascular: S1S2 reg, no murmur Lungs: CTA bilateral, no rhonchi, no rales , no accessory muscle use Abdominal: soft, nontender to palpation, no guarding, no appreciable organomegaly Ext: no gross muscle atrophy, no edema, no contractures Neuro: CN II-XI grossly intact, no focal neuro deficits Psych: Alert, oriented, appropriate affect Data Reviewed Today: Pertinent Labs: Hemoglobin 11.6, potassium 4, creatinine 0.6 Imaging: No new imaging Assessment and Plan: Status post lumbar fusion Acute blood loss anemia, expected outcome of surgery -On oral Tylenol, Flexeril as needed, gabapentin, [place] as needed, IV Dilaudid as needed -No other chronic home medications -Blood count stable Patient is medically optimized for discharge home Thank you for allowing us to participate in the care of this pleasant patient. Do not hesitate to contact us with questions. Someone can be reached from the [facility] hospitalist group all hours of the day at [phone] or via [employer]. Objective - Vital Signs Vital signs: Vital Signs Temp 98.2 F 06/16/23 07:13 Pulse 88 06/16/23 07:13 Resp 15 06/16/23 07:13 BP 100/65 06/16/23 07:13 Pulse Ox 97 06/16/23 07:13 FiO2 Intake & Output 06/15/23 06/16/23 06/16/23 18:59 06:59 18:59 Intake Total 2030 260 Output Total 425 410 Balance 1605 -150 Weight 63.503 kg Intake: IV 1550 Intake, IV Titration 260 Amount Lactated Ringers 1,000 ml 160 @ 0 mls/hr IV .[facility] Rx#:[id number] ceFAZolin 2 gm In Sodium 100 Chloride 0.9% 50 ml @ 100 mls/hr IVPB Q8H [facility] Rx#: [id number] Oral 480 Output: Urine 375 410 Estimated Blood Loss 50 Other: Voiding Method Indwelling Catheter Indwelling Catheter - Labs CBC & Chem 7: 06/16/23 04:51 06/16/23 04:51 Labs: Abnormal Lab Results - Last 24 Hours (Table) 06/16/23 06/16/23 Range/Units 04:51 04:51 RBC 3.72 L (4.10-5.20) X 10*6/uL Hgb 11.6 L (12.0-15.0) d/dL Hct 36.3 L (37.2-46.3) % MCV 97.6 H (80.0-97.0) FL Glucose 114 H (70-110) mg/dL Calcium 8.5 L (8.7-10.3) mg/dL
[2023-06-16 14:12] VITALS: BP 97/61; PULSE 83; RESP 14; TEMP 97.8
== END 2023-06-16 15:36 | disposition home or self-care (01) ==
LOC: OR 07:52 → 4SSUR 14:43 → OR 06-16 15:36
PROVIDERS: ATTEND Orthopaedic Surgery
DX: M47.27 Other spondylosis with radiculopathy, lumbosacral region (principal); M48.061 Spinal stenosis, lumbar region without neurogenic claudication; Z85.41 Personal history of malignant neoplasm of cervix uteri; Z90.49 Acquired absence of other specified parts of digestive tract; F17.290 Nicotine dependence, other tobacco product, uncomplicated; Z79.899 Other long term (current) drug therapy
CPT/HCPCS: 22840; 22853; 20931; 97161; 81025; 86900; 86901; 80048; 85025; 86850; 72100; 72131; 22633; C1713; C1734; J2250; J0330; J0690 ×2; J2405; J3010; J1170 ×2; J2704; J2001; J2371